=== PATIENT | female | born 1985 ===

== ENCOUNTER 2021-03-28 16:13 | Inpatient (IN) | payer OTHER ==
[~2021-03-28] VITALS: Ht 144.8 cm; Wt 76.6 kg
--- NOTE | 2021-03-28 16:42 | NUR ---
states had 6 vodka drinks yest, today w mult vomiting and epigastric pain radiates to back. as
[2021-03-28] MEDS ORDERED: SODIUM CHLORIDE FLUSH 10ML SYR IVF ONE (17:00)
[2021-03-28] MEDS ORDERED: SODIUM CHLORIDE 0.9% 1,000ML IVBOLUS ONE (17:00)
[2021-03-28] MEDS ORDERED: ONDANSETRON 2MG/ML, 2ML IVPush ONE (17:00)
[2021-03-28] MEDS ORDERED: ONDANSETRON 2MG/ML, 2ML ONE (17:02)
[2021-03-28] MEDS ORDERED: MAALOX/HYOSCYAMINE/LIDOCAINE 45 ML BTL PO ONE (17:30)
[2021-03-28] MEDS ORDERED: ACETAMINOPHEN 500 MG TABLET PO ONE (17:30)
[2021-03-28 17:44] LABS: BASOPHILS % (AUTO) 0 % (0-1); EOSINOPHILS % (AUTO) 0 % (1-7); LYMPHOCYTES % (AUTO) 17 % (22-44); MEAN CORPUSCULAR HEMOGLOBIN 29.5 pg (27.0-34.8); MEAN CORPUSCULAR HGB CONC 33.1 g/dL (32.4-35.8); MEAN PLATELET VOLUME 10.3 fL (7.4-10.4); MONOCYTES % (AUTO) 4 % (2-9); NEUTROPHILS % (AUTO) 78 % (42-75); PLATELET COUNT 202 x10^3/uL (130-400); RED BLOOD COUNT 4.23 x10^6/uL (3.82-5.3); RED CELL DISTRIBUTION WIDTH 13.8 % (9.6-15.2)
[2021-03-28 17:56] LABS: ALANINE AMINOTRANSFERASE 19 U/L (12-78); ALBUMIN 3.4 g/dL (3.4-5.0); ANION GAP 3 mmol/L (5-15); CALCIUM 8.6 mg/dL (8.5-10.1); CHLORIDE 105 mmol/L (98-107); CREATININE 0.85 mg/dL (0.55-1.02)
[2021-03-28 18:01] LABS: ALKALINE PHOSPHATASE 75 U/L (45-117); BILIRUBIN,TOTAL 0.2 mg/dL (0.2-1.0); TOTAL PROTEIN 7.1 g/dL (6.4-8.2)
[2021-03-28] MEDS ORDERED: ACETAMINOPHEN 500 MG TABLET ONE (18:11)
[2021-03-28] MEDS ORDERED: MAALOX/HYOSCYAMINE/LIDOCAINE 45 ML BTL ONE (18:11)
--- NOTE | 2021-03-28 18:19 | NUR ---
MEDS PER VINNY. CHERYL.
--- NOTE | 2021-03-28 18:40 | NUR ---
KWAKU IN ROOM FOR EVAL.
--- NOTE | 2021-03-28 18:48 | NUR ---
report to gris. as
--- NOTE | 2021-03-28 18:48 | NUR ---
REPORT RECEIVED FROM REAGAN CALIX
[2021-03-28] MEDS ORDERED: METRONIDAZOLE PMX 500MG/100ML 100 ML ONE (18:51)
[2021-03-28] MEDS ORDERED: HYDROmorphone 1 MG/ML, 1ML INJ ONE (18:52)
[2021-03-28] MEDS ORDERED: HYDROmorphone 1 MG/ML, 1ML INJ IV ONE (19:00)
[2021-03-28] MEDS ORDERED: METRONIDAZOLE PMX 500MG/100ML 100 ML IV ONE (19:00)
[2021-03-28] MEDS ORDERED: CEFTRIAXONE 1,000 MG in DEXTROSE 5% 50 ML IVPB ONE (19:00)
[2021-03-28] MEDS: METRONIDAZOLE PMX 500MG/100ML 100 ML IV SCH (19:29)
[2021-03-28] MEDS: CEFTRIAXONE 1,000 MG in DEXTROSE 5% 50 ML IVPB SCH (19:29)
[2021-03-28] MEDS ORDERED: SODIUM CHLORIDE FLUSH 10ML SYR IVF PRN (19:30)
[2021-03-28] MEDS ORDERED: ONDANSETRON 2MG/ML, 2ML IVPush PRN ×2 (19:30→21:30)
[2021-03-28] MEDS ORDERED: D5%-0.45% NACL 1,000 ML IV ONE (19:30)
[2021-03-28] MEDS ORDERED: HYDROmorphone 1 MG/ML, 1ML INJ IVPush PRN (19:30)
--- NOTE | 2021-03-28 19:31 | NUR ---
PT ROOM AIR O2 SAT NOTED TO BE 89% FOLLOWING FISCAL ACCOUNTANT. PT PLACED ON 2L O2 VIA NASAL CANNULA. PT REPORTS PAIN RELIEF FOLLOWING FISCAL ACCOUNTANT. PT DENIES ANY ADDITIONAL NEEDS AT THIS TIME. CALL LIGHT AND PERSONAL BELONGINGS WITHIN REACH.
--- NOTE | 2021-03-28 20:54 | NUR ---
Pt to be admitted to surgical, room 459. Report called to Hannah ruff .
[2021-03-28 21:00] VITALS: BP 123/62
[2021-03-28] MEDS ORDERED: MORPHINE SULFATE 4 MG/ML, 1ML IVPush PRN (21:30)
[2021-03-29] MEDS: METRONIDAZOLE PMX 500MG/100ML 100 ML IV SCH ×2 (00:37→06:29)
[2021-03-29 01:35] VITALS: BP 122/73
[2021-03-29 04:36] LABS: HCG UR SG 1.012 (1.003-1.030)
[2021-03-29] MEDS ORDERED: BUPIVACAINE/PF 0.5% ONE (05:04)
[2021-03-29] MEDS ORDERED: EPINEPHRINE 1 MG/ML, 1ML ONE (05:04)
[2021-03-29] MEDS: LACTATED RINGERS 1,000 ML IV SCH ×2 (05:49→17:00)
[2021-03-29] MEDS: CEFTRIAXONE 1,000 MG in DEXTROSE 5% 50 ML IVPB SCH (07:00)
[2021-03-29] MEDS ORDERED: MIDAZOLAM 1 MG/ML, 2ML ONE (07:45)
[2021-03-29] MEDS ORDERED: FENTANYL PF 100 MCG/2ML ONE ×2 (07:45→08:39)
[2021-03-29] MEDS ORDERED: CEFOTETAN 2 GM ONE (07:57)
[2021-03-29] MEDS ORDERED: LIDOCAINE-MPF 2% ,5ML ONE (07:59)
[2021-03-29] MEDS ORDERED: KETOROLAC 30 MG/1 ML ONE ×2 (07:59)
[2021-03-29] MEDS ORDERED: ROCURONIUM 10MG/ML,5ML ONE (08:01)
[2021-03-29] MEDS ORDERED: ONDANSETRON 2MG/ML, 2ML ONE (08:01)
[2021-03-29] MEDS ORDERED: DEXAMETHASONE 4 MG/ML, 5ML ONE (08:01)
[2021-03-29] MEDS ORDERED: SUCCINYLCHOLINE 20 MG/ML, 10ML ONE (08:01)
[2021-03-29] MEDS ORDERED: PROPOFOL 10 MG/ML, 20ML ONE (08:01)
[2021-03-29] MEDS ORDERED: SUGAMMADEX 200 MG/2 ML IVPush ONE (08:08)
[2021-03-29] MEDS ORDERED: BUPIVACAINE/PF-EPI 0.5% 1:200K IM ONE (08:15)
[2021-03-29] MEDS ORDERED: HYDR-2214 PO (08:25)
[2021-03-29] MEDS ORDERED: hydrALAzine 20 MG/ML, 1ML IV PRN (08:30)
[2021-03-29] MEDS ORDERED: MEPERIDINE/PF 25MG/0.5ML IVPush PRN (08:30)
[2021-03-29] MEDS ORDERED: OXYcodone 5 MG/5 ML ORAL.SOL UDC PO PRN (08:30)
[2021-03-29] MEDS ORDERED: EPHEDRINE 50 MG/ML, 1ML IVPush PRN (08:30)
[2021-03-29] MEDS ORDERED: HYDROmorphone 1 MG/ML, 1ML INJ IVPush PRN (08:30)
[2021-03-29] MEDS ORDERED: LABETALOL 5MG/ML, 20ML IV PRN (08:30)
[2021-03-29] MEDS ORDERED: PROMETHAZINE 25 MG/ML, 1ML IVPush PRN (08:30)
[2021-03-29] MEDS ORDERED: ONDANSETRON 2MG/ML, 2ML IVPush PRN ×2 (08:30→10:00)
[2021-03-29] MEDS ORDERED: ACETAMINOPHEN 325 MG TABLET PO PRN (08:30)
[2021-03-29] MEDS ORDERED: OXYcodone 5 MG/5 ML ORAL.SOL UDC ONE (08:39)
[2021-03-29] MEDS: FENTANYL PF 100 MCG/2ML IV PRN ×2 (08:40→08:47)
[2021-03-29] MEDS ORDERED: PROMETHAZINE 25 MG/ML, 1ML ONE (08:42)
[2021-03-29] MEDS ORDERED: ACETAMINOPHEN 325 MG TABLET ONE (09:02)
[2021-03-29 09:45] VITALS: BP 154/86
[2021-03-29] MEDS ORDERED: HYDROcodone/APAP 5/325 TABLET PO PRN (10:00)
[2021-03-29] MEDS: MORPHINE SULFATE 4 MG/ML, 1ML IVPush PRN ×2 (11:08→11:34)
[2021-03-29 12:54] VITALS: BP 139/91
[2021-03-29 17:25] VITALS: BP 130/84
== END 2021-03-29 17:33 | disposition home or self-care (01) | DRG 419 ==
LOC: ED 19:41 → EDIP 20:00 → 4NE 20:52
PROVIDERS: ADMIT Surgery Vascular Surgery; ATTEND Surgery Vascular Surgery
PROC: 0FT44ZZ Resection of Gallbladder, Percutaneous Endoscopic Approach (ICD-10-PCS; principal; 2021-03-29 08:00)
DX: K80.00 Calculus of gallbladder with acute cholecystitis without obstruction (principal); Z20.822 Contact with and (suspected) exposure to COVID-19
CPT/HCPCS: 36415; J3490; S0020; 76700; 80053; 81025; 83690; 84703; 85025; 87635; 88304; 93005; 96361; 96374; G0378; J0171; J0696; J1100; J1170; J1885; J2250; J2405; J2550; J2704; J3010; J0330; J2270; J7030; J7120